=== PATIENT | female | born 1975 | race Caucasian/White ===

== ENCOUNTER 2020-10-27 23:57 | Emergency (ER) | payer MEDICARE, SELFPAY ==
[2020-10-27 23:58] VITALS: BP 111/59; PULSE 98; RESP 16; TEMP 36.4; O2SAT 97; BMI 22.3
--- NOTE | 2020-10-28 00:13 | ED.DCSUM_ITS ---
- ER Visit Summary Date of Service: 10/28/20 Chief Complaint: Abscess History of Present Illness: The patient is a [address] Trinh. She reports that she has an abscess to her right maxilla that started 2 days ago. She has an aching, throbbing pain is 1010 worsening to 10 currently. Is worsened by touching and relieved by nothing. Reports she has had these multiple times in the past. She denies any dental pain. Physical Examination: Vitals: Stable. Afebrile. General: Well-nourished and well-developed. Head: Normocephalic atraumatic. Neck: Supple, no lymphadenopathy. No JVD. Nontender. Cardiovascular: Regular rate and rhythm. No murmurs. Respiratory: No respiratory distress. Clear to auscultation bilaterally. Abdominal: Soft, nontender, nondistended, normal bowel sounds. No guarding, rebound, or peritoneal signs. Back: Nontender. Extremities: Nontender, no edema. Skin: 2 cm area of induration to the right maxilla that is moderately tender to palpation. There is no appreciable fluctuance.. Neurologic: Alert and oriented ?3. Cranial nerves II through XII are intact. Normal strength and sensation. Psych: Normal affect. Emergency Department Course and Treatment: I had a prolonged discussion with patient about treatment options. Given that this is on her face we discussed the fact the patient would have a scar if I did an I&D and that I do not really feel there is a significant amount of localized pus that is amenable to drainage. She does not want an I&D performed. She was given doxycycline, naproxen, [place]. Treatment Plan: Patient be discharged with doxycycline and Bactroban. Instructed to use warm compresses. Follow-up with the emergency department or Dr. Osullivan in 2 days if not improving. Return to the emergency department for any worsening symptoms. Disposition: To home in improved and stable condition. Impression: 1. Right cheek abscess. This note was generated with [employer] dictation software. It may contain incorrect words, spelling, and punctuation that were not noted in review of the chart prior to signing ED Disposition - Plan for ED Patient: Disposition: Home or Assisted Living Instructions: ED Abscess Antibiotic Treatment Only Prescriptions: Mupirocin [Bactroban] 1 applic TOPICAL TID #1 tube Prescription Printed Doxycycline 100 mg PO BID #14 cap Prescription Printed Naproxen [Naprosyn] 500 mg PO BID #14 tab Prescription Printed Oxycodone HCl/Acetaminophen [Percocet 5/325] 1 tab PO Q6H PRN PRN 3 Days #10 tab PRN Reason: Pain Prescription Printed Referrals: Elise Osullivan MD [STAFF PHYSICIAN] - 2 Days for wound check
[2020-10-28] MEDS: Naproxen 250 MG Tablet 500 MG PO (00:43)
[2020-10-28] MEDS: oxyCODONE 5 MG Tablet PO (00:43)
[2020-10-28] MEDS: Doxycycline 100 MG CAPSULE PO (00:43)
== END 2020-10-28 00:47 | disposition home or self-care (01) ==
LOC: ED 10-28 00:36
PROVIDERS: Emergency Provider Emergency Medicine; PCP Family Medicine
DX: L02.01 Cutaneous abscess of face (principal); Z72.0 Tobacco use; Z86.14 Personal history of Methicillin resistant Staphylococcus aureus infection
CPT/HCPCS: 99283